=== PATIENT | female | born 1945 | race Caucasian/White ===

== ENCOUNTER 2019-03-17 12:06 | Outpatient (CLI) | payer MEDICARE, OTHER ==
[2019-03-17 13:17] LABS: THYROID STIMULATING HORMONE 1.25 uIU/mL (0.34-5.60)
[2019-03-17 13:19] LABS: FREE T4 (FREE THYROXINE) 0.94 ng/dL (0.58-1.64)
== END 2019-03-17 12:07 | disposition home or self-care (01) ==
LOC: LAB 12:06
PROVIDERS: ATTEND Internal Medicine Cardiovascular Disease
DX: R00.2 Palpitations (principal)
CPT/HCPCS: 36415; 84439; 84443

== ENCOUNTER 2020-12-05 14:04 | Outpatient (CLI) | payer MEDICARE, OTHER | END 2020-12-05 14:05 | disposition EMS.NT | LOC: EMS 14:04 | DX: Z04.1 Encounter for examination and observation following transport accident (principal) ==

== ENCOUNTER 2021-04-23 22:23 | Outpatient (CLI) | payer MEDICARE, OTHER | END 2021-04-23 22:24 | disposition EMS.NT | LOC: EMS 22:23 | DX: F41.9 Anxiety disorder, unspecified (principal) ==

== ENCOUNTER 2024-01-26 18:03 | Outpatient (CLI) | payer MEDICARE, OTHER | END 2024-01-26 23:59 | disposition EMS.NT | LOC: EMS 18:03 | DX: R00.0 Tachycardia, unspecified (principal); R07.89 Other chest pain ==